=== PATIENT | female | born 1985 | race Caucasian/White ===

== ENCOUNTER 2017-06-06 16:44 | Emergency (ER) | payer MEDICAID ==
[~2017-06-06] VITALS: Ht 152.4 cm; Wt 86.2 kg
[2017-06-06 19:15] VITALS: BP 158/81
[2017-06-06] MEDS ORDERED: IBUPROFEN 600 MG TAB PO ONE (19:30)
== END 2017-06-06 20:42 | disposition home or self-care (01) ==
LOC: ER 16:53
DX: S86.912A Strain of unspecified muscle(s) and tendon(s) at lower leg level, left leg, initial encounter (principal); Z48.01 Encounter for change or removal of surgical wound dressing; Z90.710 Acquired absence of both cervix and uterus; X58.XXXA Exposure to other specified factors, initial encounter; Y93.89 Activity, other specified; Y92.89 Other specified places as the place of occurrence of the external cause; Y99.8 Other external cause status